=== PATIENT | female | born 1975 | race Caucasian/White ===

== ENCOUNTER → 2020-07-13 | Outpatient (CLI) | payer BC, OTHER ==
--- NOTE | 2020-07-16 12:15 | US ---
US HEAD NECK SOFT TISSUE CLINICAL STATEMENT:44 years Female NONTOXIC SINGLE THYROID. No palpable mass. No history of prior thyroid surgery or medical therapy. COMPARISON: None TECHNIQUE: Transcutaneous scanning, grayscale and Doppler modes. FINDINGS: Size right thyroid lobe: 4.9 x 1.5 x 0.9 cm Size left thyroid lobe: 4.3 x 1.1 x 0.9 cm Size isthmus: 0.2 cm Estimated total number of nodules greater than or equal to 1 cm: 1. No cyst, no fluid collection, no calcification. Nodule 1: Size: 1.0 x 1.0 x 0.8 cm Location: Right Mid Composition: solid or almost completely solid: 2 points Echogenicity: hypoechoic: 2 points Shape: wider than tall: 0 points Margins: smooth: 0 points Echogenic foci: none: 0 points ACR Total Points: 4; ACR TI-RADS risk category: TR4 - moderately suspicious nodule. No dominant solid mass, no distinct cyst, no fluid collection, no large calcifications in the surrounding soft tissues. IMPRESSION: 1. Nodule 1: ACR TI-RADS 2017 Category TR4. Recommend: Follow-up ultrasound in 1 year.. Recommendations based upon [facility] recommendations and ACR TI-RADS 2017 guidelines. Please see below*. 2. Surrounding soft tissues showing no ultrasound abnormality. *ACR TI-RADS 2017 Recommendations for imaging follow-up of nodules (baseline study): TR1: No FNA or follow up TR2: No FNA or follow up TR3: FNA if >/= 2.5 cm, follow up if 1.5 - 2.4 cm in 1, 3, and 5 years TR4: FNA if >/= 1.5 cm, follow up if 1.0 - 1.4 cm in 1, 2, 3, and 5 years TR5: FNA if >/= 1.0 cm, follow up if 0.5 - 0.9 cm every year for 5 years ACR TI-RADS recommends that no more than two nodules with the highest ACR TI-RADS total point should be biopsied and no more than four nodules should be followed. These recommendations do not apply to patients with increased risk for thyroid cancer or patients with symptomatic thyroid disease. Electronically signed by: Adrián Espinoza MD 07/16/2020 12:14 PM CDT
== END ==
LOC: US 11:37
PROVIDERS: ATTEND Family Medicine
DX: E04.1 Nontoxic single thyroid nodule (principal)